=== PATIENT | male | born 1975 ===

== ENCOUNTER → 2017-09-06 | Outpatient (CLI) | payer OTHER ==
--- NOTE | 2017-09-06 12:56 | XR ---
EXAMINATION TYPE: XR knee complete RT DATE OF EXAM: 09/06/2017 CLINICAL HISTORY: Right knee buckled after getting out of vehicle TECHNIQUE: Three views of the right knee are obtained. COMPARISON: None. FINDINGS: There is no acute fracture/dislocation evident in right knee. The tri-compartment joint s paces appear within normal limits. The overlying soft tissue appears unremarkable. IMPRESSION: There is no acute fracture or dislocation in the right knee.
== END | disposition home or self-care (01) ==
LOC: RADXRMAIN 12:29
PROVIDERS: ATTEND Emergency Medicine
DX: S83.91XA Sprain of unspecified site of right knee, initial encounter (principal)

== ENCOUNTER → 2018-04-17 | Outpatient (CLI) | payer BC ==
--- NOTE | 2018-04-17 18:53 | CONS ---
CONSULTATION DATE OF SERVICE: 04/17/2018. 42-year-old gentleman has been evaluated in Sleep Center for obstructive sleep apnea- hypopnea syndrome. HISTORY OF PRESENT ILLNESS SLEEP WAKE EVALUATION: The patient has been diagnosed with obstructive sleep apnea in 2014. Since that time, he is on treatment with CPAP every night for the whole night. He successfully using his equipment without snoring. SLEEP SCHEDULE: His sleep schedule from 10:30-11 p.m. until 5:00 a.m. FALLING ASLEEP: Usually no significant problems with falling asleep. No episodes of stopped breathing while he is using equipment. No nocturia. [place] Sleepiness Scale is 8. PAST MEDICAL HISTORY: back problems. PAST SURGICAL HISTORY: Back surgery for herniated disc in September of 2016. MEDICATIONS: None at the present time. SOCIAL HISTORY: Negative for smoking. Alcohol consumption occasional. FAMILY HISTORY: Positive for hypertension and heart problems. REVIEW OF SYSTEMS: Basically mostly negative. Patient sleeps well with the machine. Feels okay during the day. . PHYSICAL EXAM: gentleman without distress. BP 134/79, HR 68, RR 16, height 6 feet 1 inch and a half. Weight of 262, BMI 33.9, temperature 97.8, oxygen saturation on room air 96%. Oropharynx extremely low position of soft palate. Abdomen slightly obese. Neck Supple, no JVD. Thyroid is not palpable. LUNGS Clear to percussion and to auscultation. Good air exchange. No wheezing or rhonchi. HEART S1, S2 regular. No murmurs, gallops, or rubs. ABDOMEN Soft and nontender. Bowel sounds are present. No organomegaly appreciated. EXTREMITIES No clubbing or cyanosis. MEDIC TECHNICIAN Awake, alert, and oriented X3. Cranial nerves 2 to 7 intact. There is no fasciculation or atrophy. noted. No focal deficits observed. I checked the patient's BiPAP unit. The pressure is 13/9 cm of water. Usage is 29/30 nights for more than 4 hours. Average 6.2 hours. Leak is 11 L/minute which is normal range. Apnea-hypopnea index reading for the last month is 2.6, which is normal. IMPRESSION: 1. Obstructive sleep apnea-hypopnea syndrome on control with BiPAP at 13/9 cm of water. Patient demonstrated great compliance with treatment benefitting from treatment. 2. Mild obesity BMI 33.9. 3. History of . 4. Status post back surgery for herniated disc in 2016. 5. Status post appendectomy in the past. 6. Status post tonsillectomy in the past. PLAN: 1. Patient will continue to use his BiPAP equipment with the same pressure every night for the whole night. 2. Losing weight. 3. Sleep hygiene with regular time in bed for at least 8 hours. 4. No driving if feeling sleepiness. 5. Prescription for all necessary CPAP supplies including mask, tube, filters. 6. Follow-up visit in 1 year or earlier if the patient has any problems. Thank you very much for allowing me to participate in management of your patient. Sincerely, Dick Pinedo MD, PhD, FAASM Diplomat of [place] [employer] [place] [employer] Tender [facility] [place] MMODL / NUZHATN: [id number] /
== END | disposition home or self-care (01) ==
LOC: SLEEP 14:22
PROVIDERS: ATTEND Internal Medicine
DX: Z53.9 Procedure and treatment not carried out, unspecified reason (principal)

== ENCOUNTER 2018-07-11 17:41 | Emergency (ER) | payer BC, OTHER ==
[2018-07-11 19:12] VITALS: RESP 20
[2018-07-11] MEDS ORDERED: IBUPROFEN 800 MG TAB PO STA (19:22)
--- NOTE | 2018-07-11 20:16 | XR ---
EXAMINATION TYPE: XR hand complete RT DATE OF EXAM: 07/11/2018 COMPARISON: NONE HISTORY: Pain TECHNIQUE: 3 views FINDINGS: There is impacted comminuted fracture of the neck of the fifth metacarpal head. There is so me deformity of the fourth and fifth metacarpals related to old healed fractures. There is no disloca tion. IMPRESSION: Acute fifth metacarpal fracture.
--- NOTE | 2018-07-11 20:17 | XR ---
EXAMINATION TYPE: XR wrist complete RT DATE OF EXAM: 07/11/2018 COMPARISON: NONE HISTORY: Pain TECHNIQUE: 4 views FINDINGS: Carpal bones are intact. Wrist joint is intact. I see no fracture. Scaphoid appears normal. There is slight widening of the scapholunate joint space. IMPRESSION: No acute abnormality of the right wrist. Slight widening of the scapholunate joint space consistent with ligamentous injury that is probably old.
[2018-07-11] MEDS ORDERED: HYDROcodone/APAP 5-325MG 1 EACH TAB PO STA (20:45)
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
[2018-07-11 21:26] VITALS: BP 153/80; PULSE 77; TEMP 98.2
== END 2018-07-11 21:27 | disposition home or self-care (01) ==
LOC: EC 17:41
DX: S62.336A Displaced fracture of neck of fifth metacarpal bone, right hand, initial encounter for closed fracture (principal); G47.30 Sleep apnea, unspecified; Z99.89 Dependence on other enabling machines and devices; Z88.0 Allergy status to penicillin; Y35.891A Legal intervention involving other specified means, law enforcement official injured, initial encounter; Y92.69 Other specified industrial and construction area as the place of occurrence of the external cause; Y99.0 Civilian activity done for income or pay
CPT/HCPCS: 29125; 99283

== ENCOUNTER → 2020-06-30 | Outpatient (CLI) | payer BC ==
--- NOTE | 2020-06-30 23:14 | SFUN ---
SLEEP CENTER FOLLOW UP NOTE DATE OF SERVICE: 06/30/2020 84-year-old gentleman has been followed in Sleep Center for treatment of obstructive sleep apnea-hypopnea syndrome. The patient continued to use his BiPAP equipment every night for the whole night. No snoring with the machine, but sometimes machine stopped working at night. I checked his BiPAP unit. Pressure is 13/9 cm of water, usage 28/30 nights, 18/30 nights for more than 4 hours, average 4.3 hours per night. Leak is 0. Apnea-hypopnea index 2.5, which is in normal range. MEDICATIONS: Escitalopram. PHYSICAL EXAM: Patient in no distress. BP 125/74, HR 76, RR 16, height 6 feet 2 inches, and weight 263, BMI 33.7, temperature 98.3, oxygen saturation at room air 94%. OROPHARYNX: Extremely low position of soft palate, Mallampati IV, wide neck, 17-1/2 inches in circumference. NECK: Supple, no JVD. Thyroid is not palpable. LUNGS: Clear to percussion and to auscultation. Good air exchange. No wheezing or rhonchi. HEART: S1, S2 regular. No murmurs, gallops, or rubs. ABDOMEN: Soft and nontender. Bowel sounds are present. No organomegaly appreciated. EXTREMITIES: No clubbing or cyanosis. SOFTWARE DEVELOPMENT INTERN: Awake, alert, and oriented X3. Cranial nerves 2 to 7 intact. There is no fasciculation or atrophy. noted. No focal deficits observed. IMPRESSION: 1. Obstructive sleep apnea-hypopnea syndrome. Patient demonstrated borderline compliance with treatment benefitting from treatment. 2. Mild obesity. 3. Back problems. 4. Status post back surgery for herniated disk 2016. 5. Status post appendectomy in the past. 6. Status post tonsillectomy. PLAN: 1. Prescription to check if necessary replace BiPAP unit with a pressure of 13/9 cm of water. 2. Continue to use BiPAP equipment every night for the whole night. 3. Followup visit after patient receive new BiPAP equipment to be sure that everything is working well and patient demonstrated great compliance. 4. No driving if feeling sleepiness. 5. Watching and losing weight. Thank you very much for allowing me to participate in management of your patient. Sincerely, Dick Pinedo MD, PhD, FAASM Diplomat of [employer] Applications Packager of [facility] [place] MMANGEL / NUZHATN: [id number] /
== END | disposition home or self-care (01) ==
LOC: SLEEP 15:19
PROVIDERS: ATTEND Internal Medicine
DX: G47.33 Obstructive sleep apnea (adult) (pediatric) (principal); M43.8X9 Other specified deforming dorsopathies, site unspecified; E66.9 Obesity, unspecified; Z98.890 Other specified postprocedural states; Z99.89 Dependence on other enabling machines and devices

== ENCOUNTER 2020-12-08 07:16 | Day surgery (SDC) | payer BC ==
[2020-11-09 08:35] VITALS: BMI 33.3
[~2020-12-08 07:16] MED LIST: LACTATED RINGERS 1,000 ML IV SCH; LIDOCAINE 1% (10MG/ML) FOR IV START INTRADERMA PRN
[2020-12-08 07:42] VITALS: RESP 16; TEMP 97
[2020-12-08] MEDS ORDERED: PROPOFOL 10 MG/ML 20 ML VIAL IV ONE (08:27)
--- NOTE | 2020-12-08 08:56 | P.PCN ---
Date of Procedure: 12/08/20 Description of Procedure: BRIEF HISTORY: Patient is a 45-year-old male presenting for outpatient colonoscopy for evaluation of change in bowel habits. He reports remote history of colonoscopy for rectal bleeding years ago. Recently he reports increased frequency of bowel movements with approximately 3 loose bowel movements through the day. He reports urgency with bowel movements and episodes of incontinence. PROCEDURE PERFORMED: Colonoscopy with polypectomy and biopsy . PREOPERATIVE DIAGNOSIS: Change in bowel habits, diarrhea, last colonoscopy 15 years ago ESTIMATED BLOOD LOSS: Minimal. IV sedation per Anesthesia. PROCEDURE: After informed consent was obtained, the patient, was brought into the endoscopy unit. IV sedation was administered by Anesthesia under continuous monitoring. Digital rectal examination was normal. Initially the Olympus CF-190 flexible video colonoscope was then inserted in the rectum, gradually advanced into the cecum without any difficulty. Careful examination was performed as the scope was gradually being withdrawn. Ileocecal valve and the appendiceal orifice were visualized and appeared normal. Prep was excellent. Mucosa of the cecum, ascending colon, transverse colon, descending colon, sigmoid colon, and rectum appeared normal. A 11 mm tubulovillous-appearing polyp on the ileocecal valve was removed with hot snare polypectomy. A 2 mm sessile sigmoid polyp was removed with cold forcep polypectomy. Biopsies taken of the right and left colon in the setting of altered bowel function . Retroflexion was performed in the rectum and no lesions were seen, internal hemorrhoids seen. The patient tolerated the procedure well. IMPRESSION: Large tubulovillous-appearing ileocecal valve polyp removed with hot snare polypectomy. Diminutive sigmoid polyp removed with cold forceps. Internal hemorrhoids. RECOMMENDATIONS: Findings of this examination were discussed with the patient.. Okay to resume diet. Okay to resume medications. Await pathology from biopsies and polypectomy. Recommend repeat colonoscopy in 3 years for history of colon polyps pending pathology from polypectomy.
[2020-12-08 09:13] VITALS: BP 132/76; PULSE 55
== END 2020-12-08 09:34 | disposition home or self-care (01) ==
LOC: ORWHC2ENDO 07:16
PROVIDERS: ATTEND Internal Medicine
DX: D12.0 Benign neoplasm of cecum (principal); K63.5 Polyp of colon; K64.8 Other hemorrhoids; G47.33 Obstructive sleep apnea (adult) (pediatric); Z88.0 Allergy status to penicillin; Z88.8 Allergy status to other drugs, medicaments and biological substances; Z99.89 Dependence on other enabling machines and devices; Z79.899 Other long term (current) drug therapy; Z98.890 Other specified postprocedural states
CPT/HCPCS: 88305; 45380; 45385; J2704

== ENCOUNTER → 2021-05-30 | Outpatient (CLI) | payer BC ==
--- NOTE | 2021-05-30 09:05 | US ---
EXAMINATION TYPE: US abdomen limited DATE OF EXAM: 05/30/2021 COMPARISON: NONE CLINICAL HISTORY: R74.8 ELEVATED LIVER ENZYMES. Pt states elevated LFT's, pt has no other complaints at this time EXAM MEASUREMENTS: Liver Length: 19.1 cm Gallbladder Wall: 0.2 cm CBD: 0.3 cm Right Kidney: 12.2 z 5.8 x 5.8 cm Pancreas: Obscured by bowel gas Liver: Diffuse fatty infiltration with probable fatty sparing near GB, difficult to penetrate,. Ther e is a cyst left lobe= 0.9 cm Gallbladder: wnl Evidence for sonographic Culp's sign: No CBD: wnl Right Kidney: Within normal limits. Lower pole is not visualized due to overlying bowel gas. IMPRESSION: 1. Diffuse fatty infiltration of the liver with probable focal fatty sparing at gallbladder fossa. Cy st at the left lobe of the liver measuring 9 mm. 2. The lower pole of the right kidney is not visualized due to overlying bowel gas. No renal calculi or hydronephrosis. 3. The pancreas is not visualized due to overlying bowel gas.
== END | disposition home or self-care (01) ==
LOC: RADUSWWP 08:13
PROVIDERS: ATTEND Internal Medicine
DX: K76.0 Fatty (change of) liver, not elsewhere classified (principal); K76.89 Other specified diseases of liver
CPT/HCPCS: 76705

== ENCOUNTER → 2021-06-07 | Outpatient (CLI) | payer BC ==
[2021-06-07 20:40] LABS: ALT 88 U/L (10-49); AST 52 U/L (14-35); African American GFR (CKD) 117.5 (60.0-200.0); Albumin/Globulin Ratio 1.52 (1.60-3.17); Alkaline Phosphatase 53 U/L (41-126); BUN/Creat Ratio 16.67 Ratio (12.00-20.00); Bilirubin, Conjugated <0.20 mg/dL (0.20-0.40); Carbon Dioxide 27.1 mmol/L (21.6-31.8); Chloride 106 mmol/L (96-109); Globulin 2.7 g/dL (1.6-3.3); Glucose 129 mg/dL (70-110); Non-African American GFR(CKD) 101.4 (60.0-200.0); Potassium 4.1 mmol/L (3.5-5.5); Sodium 139 mmol/L (135-145); Total Bilirubin 0.5 mg/dL (0.2-1.2); Total Protein 6.8 g/dL (6.2-8.2)
[2021-06-07 21:44] LABS: Hepatitis A Antibody IgM Non-Reactive (Non-Reactive); Hepatitis B Core IgM Non-Reactive (Non-Reactive); Hepatitis B Surface Antigen Non-Reactive (Non-Reactive); Hepatitis C IgG Antibody Non-Reactive (Non-Reactive)
[2021-06-08 06:33] LABS: EBV - VCA IgM <10.0 U/mL (<36.0)
[2021-06-08 13:47] LABS: Alpha 1 Antitrypsin 97.7 mg/dL (99.0-242.0); Ceruloplasmin 21.8 mg/dL (20.0-60.0)
== END | disposition home or self-care (01) ==
LOC: LABWHC1 12:31
PROVIDERS: ATTEND Internal Medicine
DX: R74.8 Abnormal levels of other serum enzymes (principal)
CPT/HCPCS: 36415; 80053; 80074; 82103; 82390; 82525; 83516; 86038; 86645; 86665

== ENCOUNTER → 2023-09-12 | Outpatient (CLI) | payer BC ==
--- NOTE | 2023-09-12 16:26 | P.SLEEP ---
History of Present Illness DATE: 09/12/2023 CONSULTATION/NEW PATIENT EVALUATION HISTORY OF PRESENT ILLNESS/SLEEP-WAKE EVALUATION: 47-year-old gentleman had been reevaluated to sleep center for obstructive sleep apnea hypopnea syndrome. Last time I so patient in June 2020. Patient continued to use his BiPAP equipment every night. I checked BiPAP unit. Pressure is 13/9 cm of water, usage is 95% of nights, average 5.4 hours per night. Leak is 18 L/m which is acceptable. Apnea-hypopnea index is 4.5, which is in normal range but in the upper border. Patient increased his weight on 39 pounds since previous visit SLEEP SCHEDULE: From 10 PM to 4 AM on weekdays and from midnight to 7 AM on weekend. FALLING ASLEEP: No problems with falling asleep. DURING SLEEP: With CPAP patient usually does not snore. She still may wake up from sleep up to 3 times, but without nocturia. DURING THE DAY/WAKE STATE: During the day patient may feel episodes of sleepiness. [place] sleepiness scale is slightly increased to 11. Patient usually doesn't take naps MEDICATIONS: Escitalopram 10 mg once a day PAST MEDICAL HISTORY: Back problems, sinuses problems Surgical history: Back surgery, tonsillectomy, appendectomy FAMILY HISTORY: Hypertension, heart problems, hypercholesterolemia SOCIAL HISTORY: Negative for smoking, alcohol consumption occasional REVIEW OF SYSTEMS: Episodes of awakenings from sleep .No fevers. No double vision. No recent chest pain. No shortness of breath. No abdominal pain. No bleeding episodes. No blood in urine. No seizure episodes. PHYSICAL EXAMINATION: GENERAL: A pleasant patient without any distress. VITAL SIGNS: BP 161/91 , HR 71 , RR 18 , weight 302.2 , body mass index 38.5 . HEENT: PERRLA, EOMI. Evaluation of oropharynx showed tongue protrudes midline. NECK: Supple. No JVD. Thyroid is not palpable. Neck is 21-1/4 inches LUNGS: Clear to percussion and to auscultation. Good air exchange. No wheezing or rhonchi. HEART: S1, S2 regular. No murmurs, gallops or rubs. ABDOMEN: Soft and nontender. Bowel sounds are present. No organomegaly appreciated. EXTREMITIES: No clubbing or cyanosis. ENGINEERING INSPECTION ASSISTANT: Awake, alert, and oriented x3. Cranial nerves 2 to 7 intact. There is no fasciculation or atrophy noted. No focal deficits observed. ASSESSMENT: 1. Obstructive sleep apnea hypopnea syndrome for many years. Patient continued to use his BiPAP equipment every night for the whole night. Low position of soft palate Mallampati 3. Wide neck 21-1/4 inches in circumference. 2. Obesity, BMI 38.5, patient increased his weight on 39 pounds since previous visit 3 years ago. 3. Back problems. 4. Status post back surgery 5, status post tonsillectomy 6. Blood pressure increased in the office today. 7. Status post appendectomy. PLAN: 1. Patient will continue to use BiPAP equipment equipment every night for the whole night. 2. I changed her regimen of BiPAP unit to automatic with maximal inspiratory pressure 17 and minimal expiratory pressure 8, pressure-support 4 cm of water. 3. Preferable position during sleep on the side. 4. No driving if patient feels any sleepiness. Patient is aware of civil and criminal liability for unsafe driving. 5. I will see patient for follow-up visit in 6 months or earlier if patient has any problems. Dick Pinedo MD, PhD, FAASM Diplomat of [place] [employer], Sleep Medicine Board by [place] [employer] [place] [employer] Channel Layer of [facility] [place] Past Medical History Past Medical History: Skin Disorder, Sleep Apnea/CPAP/BIPAP Additional Past Medical History / Comment(s): PAST HEART PALPITATIONS, ROSECEA, CHANGE IN BOWEL HABITS. USES C PAP MACHINE History of Any Multi-Drug Resistant Organisms: None Reported Past Surgical History: Appendectomy, Back Surgery, Tonsillectomy Additional Past Surgical History / Comment(s): 10-10-16 LAMINECTOMY/DISCECTOMY, STEROIDS INJ TO SPINE. COLONOSCOPY ABOUT 15 YEARS AGO Past Anesthesia/Blood Transfusion Reactions: No Reported Reaction Past Psychological History: No Psychological Hx Reported Smoking Status: Never smoker Past Alcohol Use History: Occasional Past Drug Use History: None Reported - Past Family History Mother Family Medical History: Cancer Father Family Medical History: Myocardial Infarction ([place]) Medications and Allergies Home Medications Medication Instructions Recorded Confirmed Type ALPRAZolam [Xanax] 0.5 mg PO DAILY PRN 11/09/20 12/06/20 History Cetirizine HCl [Zyrtec] 10 mg PO HS 11/09/20 12/06/20 History Escitalopram [Lexapro] 10 mg PO HS 11/09/20 12/06/20 History Allergies Allergy/AdvReac Type Severity Reaction Status Date / Time amoxicillin [From Augmentin] AdvReac Nausea & Verified 12/08/20 07:42 Vomiting clavulanic acid AdvReac Nausea & Verified 12/08/20 07:42 [From Augmentin] Vomiting Sleep Note - Sleep Note Sleep Note: Temperature: Pulse Rate: Respiratory Rate: Blood Pressure: SpO2: Height: Weight: BMI: Neck Circumference:
== END ==
LOC: 3 N SLEEP 15:40
PROVIDERS: ATTEND Internal Medicine
DX: G47.33 Obstructive sleep apnea (adult) (pediatric) (principal); E66.9 Obesity, unspecified; R03.0 Elevated blood-pressure reading, without diagnosis of hypertension; M51.9 Unspecified thoracic, thoracolumbar and lumbosacral intervertebral disc disorder; Z98.890 Other specified postprocedural states; Z90.89 Acquired absence of other organs; Z99.89 Dependence on other enabling machines and devices; Z68.38 Body mass index [BMI] 38.0-38.9, adult; Z88.0 Allergy status to penicillin; Z88.8 Allergy status to other drugs, medicaments and biological substances
CPT/HCPCS: 99211

== ENCOUNTER → 2024-01-30 | Outpatient (CLI) | payer BC ==
[2024-01-30 14:00] VITALS: BP 158/89; PULSE 80; RESP 16; TEMP 98.1
--- NOTE | 2024-01-30 14:24 | P.PN ---
Subjective DATE: 01/30/2024 FOLLOW UP VISIT. Patient with obstructive sleep apnea hypopnea syndrome return to sleep center for follow-up visit. Information from previous visit have been reviewed. Patient was not able to use his BiPAP equipment for the last months, he feels the pressure is too high and he developed dryness in his nose and some bloody discharge from the nose. [place] sleepiness scale is increased to 14. I checked information from PAP unit. PAP unit pressure maximal inspiratory pressure 17 and minimal expiratory pressure 8, pressure support 4, average pressure 15.5 or 11.5 cm H2O. Usage was about 50% for the last 3 months with average usage 5.2 hours per night. Leak is 25 l/m, which is in acceptable range. Apnea Hypopnea Index is 3.3, which is normal. MEDICATIONS:1. Lexapro 10 mg once a day During physical exam: GENERAL: A pleasant patient without any distress. VITAL SIGNS: Please see below. HEENT: PERRLA, EOMI.low position of soft palate, [place] 3 . NECK: Supple. No JVD. LUNGS: Clear to percussion and to auscultation. Good air exchange. No wheezing or rhonchi. HEART: S1, S2 regular. ABDOMEN: Soft and nontender. Obese EXTREMITIES: No clubbing or cyanosis. TRANSCRIPTIONIST: Awake, alert, and oriented x3. No focal deficit. Impressions: 1. Obstructive sleep apnea-hypopnea syndrome. Patient has difficulties with the usage BiPAP equipment. I changed parameters and BiPAP unit down to maximal inspiratory pressure of 14 and minimal expiratory pressure 9, humidity was increased to the level of 6, and tube temperature was increased to 81 degree. 2. Obesity, patient lost 18 pounds since previous visit. 3. Back problems, status post back surgery. 4. Status post tonsillectomy. 5. Blood pressure increased in the office today and it was increased in the office during previous visit. 6. Status post tonsillectomy. Plan: 1. Continue using PAP equipment every night for the whole night. 2. To change air filter at least 1-2 times per month. 3. PAP unit should stay lower then position of the head. 4. Advised patient to remove all remaining water from humidifier canister daily and make it dry after each usage. Refill canister with fresh distilled water before each usage. 5. Sleep hygiene with regular time in bed for at least 8 hours. 6. Precautions related to driving. No driving if feel any sleepiness. 7. I will maintain prescription for PAP supplies including mask, tube, filters. 8. Follow up visit in 4 months or earlier if patient has any problems. 9. Watching and losing weight. 10. Monitoring blood pressure. 11. Low-sodium diet. Thank you very much for allowing me to participate in the management of your patient. Dick Pinedo MD, PhD, FAASM. Diplomat of [place] [employer], Sleep Medicine Board by [place] [employer] Team Assistant of [facility] [place] Objective - Vital Signs Vital signs: Vital Signs Temp 98.1 F 01/30/24 13:50 Pulse 80 01/30/24 13:50 Resp 16 01/30/24 13:50 BP 158/89 01/30/24 13:50 Pulse Ox 96 01/30/24 13:50 FiO2
== END ==
LOC: 3 N SLEEP 13:34
PROVIDERS: ATTEND Internal Medicine
DX: G47.33 Obstructive sleep apnea (adult) (pediatric) (principal); E66.9 Obesity, unspecified; M51.9 Unspecified thoracic, thoracolumbar and lumbosacral intervertebral disc disorder; R03.0 Elevated blood-pressure reading, without diagnosis of hypertension; Z98.890 Other specified postprocedural states; Z90.89 Acquired absence of other organs; Z99.89 Dependence on other enabling machines and devices; Z79.899 Other long term (current) drug therapy; Z88.0 Allergy status to penicillin; Z88.8 Allergy status to other drugs, medicaments and biological substances
CPT/HCPCS: 99212

== ENCOUNTER 2024-08-21 09:09 | Day surgery (SDC) | payer BC ==
[2024-08-21] MEDS: IV FLUID CONTINUATION 1,000 ML IV ONE (09:25)
[2024-08-21 09:38] VITALS: RESP 16; TEMP 97.4
[2024-08-21] MEDS ORDERED: PROPOFOL 10 MG/ML 20 ML VIAL IV ONE (09:47)
--- NOTE | 2024-08-21 10:13 | P.PCN ---
Date of Procedure: 08/21/24 Procedure(s) Performed: BRIEF HISTORY: Patient is a 48-year-old pleasant white male scheduled for an elective colonoscopy as a part of evaluation of prior history of colon polyps. Last colonoscopy was 3 years ago and was noted to have tubular adenoma PROCEDURE PERFORMED: Colonoscopy with biopsy and snare polypectomy. PREOPERATIVE DIAGNOSIS: History of colon polyps. IV sedation per Anesthesia. PROCEDURE: After informed consent was obtained, the patient, was brought into the endoscopy unit. IV sedation was administered by Anesthesia under continuous monitoring. Digital rectal examination was normal. Initially the Olympus CF-160 flexible video colonoscope was then inserted in the rectum, gradually advanced into the cecum without any difficulty. Careful examination was performed as the scope was gradually being withdrawn. Ileocecal valve and the appendiceal orifice were visualized and appeared normal. Prep was excellent. Mucosa of the cecum, ascending colon appeared normal. In the transverse colon there was a 3 mm polyp that was removed by cold biopsy. In the descending colon there was a 5 mm and a 7 mm flat polyps removed by cold snare polypectomy. Rest of the, transverse colon, descending colon, sigmoid colon, and rectum appeared normal. Retroflexion was performed in the rectum and no lesions were seen. The patient tolerated the procedure well. IMPRESSION: 5 mm and 7 mm descending colon polyp status post cold snare polypectomy 3 mm transverse colon polyp status post cold biopsy RECOMMENDATIONS: Findings of this examination were discussed with the patient as well as his family. He was advised to follow-up with the biopsy results. If the biopsy reveals adenoma he can have repeat colonoscopy in 5 years.
[2024-08-21 10:34] VITALS: BP 123/67; PULSE 59
== END 2024-08-21 10:47 | disposition home or self-care (01) ==
LOC: ORWHC2ENDO 09:09
PROVIDERS: ATTEND Internal Medicine Gastroenterology
DX: Z86.010 Personal history of colon polyps
CPT/HCPCS: 45380; 45385; 88305